=== PATIENT | female | born 1985 | race Caucasian/White ===

== ENCOUNTER 2017-03-04 21:56 | Emergency (ER) | payer OTHER ==
[~2017-03-04] VITALS: Ht 165.1 cm; Wt 77.1 kg
[~2017-03-04 21:56] MED LIST: ACET-704 PO; CYCL10TA2 PO; ESCI10TA10 PO; METH4TAB2 PO; NAPR500T8 PO; ONDA4TAB10 SL
[2017-03-04 22:52] VITALS: BP 134/95
[2017-03-04] MEDS ORDERED: IBUP-1007 PO (23:21)
--- NOTE | 2017-03-04 23:21 | PHYS DOC ---
Past Medical History Past Medical History: No Pertinent History, Anxiety Past Surgical History: Alcohol Use: None Drug Use: None Adult General Chief Complaint Chief Complaint: HAND PROBLEM HPI HPI Patient is a 32 year old female who presents here today secondary to pain to her left hand. Patient reports that it was actually hit her son while he was swinging a plastic bat. Patient claims of pain over her fifth MCP joint region. Patient with any other complaints at this time. Patient's physical exam is significant for tenderness to palpation to her left fifth MCP area. Patient has a deformity. There is some soft tissue swelling in that area and some erythema. Patient's full range of motion intact. Patient has no deformity Patient's ER workup was significant for an x-ray that was obtained that revealed no acute fracture. X-ray left hand: No fracture no dislocation interpreted by Dr. Jiménez. Assessment and plan This is a 32-year-old female who presents here today secondary to pain to her left hand after blunt trauma to it. Patient's x-rays are negative. Patient be discharged home with ibuprofen assist her with the pain. Review of Systems Review of Systems Constitutional: Denies fever or chills [] Eyes: Denies change in visual acuity, redness, or eye pain [] All other review systems are negative except as documented in the history of present illness portion. Current Medications Current Medications Current Medications Medications (Trade) Dose Ordered Sig/Nelli Start Time Stop Time Status Last Admin Dose Admin Ibuprofen (Motrin) 600 mg 1X ONCE 03/04/17 23:30 03/04/17 23:31 Allergies Allergies Allergies Coded Allergies Type Severity Reaction Last Updated Verified No Known Drug Allergies 05/11/15 No Physical Exam Physical Exam Constitutional: Well developed, well nourished, no acute distress, non-toxic appearance. [] HENT: Normocephalic, atraumatic, bilateral external ears normal, oropharynx moist, no oral exudates, nose normal. [] Eyes: PERRLA, EOMI, conjunctiva normal, no discharge. [] Neck: Normal range of motion, no tenderness, supple, no stridor. [] Cardiovascular:Heart rate regular rhythm, no murmur [] Lungs & Thorax: Bilateral breath sounds clear to auscultation [] Abdomen: Bowel sounds normal, soft, no tenderness, no masses, no pulsatile masses. [] Skin: Warm, dry, no erythema, no rash. [] Back: No tenderness, no CVA tenderness. [] Extremities: See above. Neurologic: Alert and oriented X 3, normal motor function, normal sensory function, no focal deficits noted. [] Psychologic: Affect normal, judgement normal, mood normal. [] Current Patient Data Vital Signs Vital Signs Date Time Temp Pulse Resp B/P (MAP) Pulse Ox O2 Delivery O2 Flow Rate FiO2 03/04/17 22:52 98.0 86 18 98 Room Air 98.0 EKG EKG [] Radiology/Procedures Radiology/Procedures [] Course & Med Decision Making Course & Med Decision Making Pertinent Labs and Imaging studies reviewed. (See chart for details) [] Dragon Disclaimer Dragon Disclaimer This electronic medical record was generated, in whole or in part, using a voice recognition dictation system. Departure Departure Impression: Primary Impression: Contusion of left hand, initial encounter Disposition: HOME, SELF-CARE Condition: IMPROVED Referrals: UNKNOWN PCP NAME (PCP) Patient Instructions: Hand Contusion Scripts Ibuprofen (IBUPROFEN) 600 Mg Tablet 600 MG PO PRN Q6HRS Y for PAIN, #20 TAB Prov: PATRICK ZHU MD 03/04/17 PATRICK ZHU MD March 04, 2017 23:21
[2017-03-04] MEDS ORDERED: IBUPROFEN 600 MG TABLET. PO ONE (23:30)
--- NOTE | 2017-03-05 07:28 | RAD ---
Portable left hand, 3 views, 03/04/2017: History: Hand injury. No fracture or dislocation is identified. The soft tissues are unremarkable. IMPRESSION: No acute left hand abnormality is detected.
== END 2017-03-04 23:42 | disposition home or self-care (01) ==
LOC: ER 21:56
DX: S60.222A Contusion of left hand, initial encounter (principal); W22.8XXA Striking against or struck by other objects, initial encounter; Y93.89 Activity, other specified; Y99.8 Other external cause status; Y92.89 Other specified places as the place of occurrence of the external cause
CPT/HCPCS: 73130; 99284

== ENCOUNTER 2017-04-22 15:14 | Emergency (ER) | payer OTHER ==
[~2017-04-22] VITALS: Ht 157.5 cm; Wt 73.9 kg
[~2017-04-22 15:14] MED LIST changes: -ESCI10TA10 PO; +IBUP-1007 PO; +LEXAPRO10 MG PO
[2017-04-22 15:28] VITALS: BP 121/79
--- NOTE | 2017-04-22 15:57 | RAD ---
Indication injury, pain. AP oblique and lateral views of the right knee were obtained. A sunrise view was also obtained. No acute finding is seen. Significant degenerative changes are not apparent
[2017-04-22] MEDS ORDERED: DICL50TA4 PO (16:24)
--- NOTE | 2017-04-22 16:24 | PHYS DOC ---
Past Medical History Past Medical History: No Pertinent History, Anxiety Past Surgical History: Alcohol Use: None Drug Use: None Adult General Chief Complaint Chief Complaint: KNEE INJURY HPI HPI Patient is a 32 year old female with history of anxiety who presents with right posterior knee pain mild in nature that began yesterday while mowing his lawn. Patient denies any known injury. Patient states the pain is worse on flexion of the knee. Review of Systems Review of Systems Constitutional: Denies fever or chills [] Eyes: Denies change in visual acuity, redness, or eye pain [] Musculoskeletal: right posterior knee pain Integument: Denies rash or skin lesions [] Neurologic: Denies headache, focal weakness or sensory changes [] Endocrine: Denies polyuria or polydipsia [] Allergies Allergies Allergies Coded Allergies Type Severity Reaction Last Updated Verified No Known Drug Allergies 05/11/15 No Physical Exam Physical Exam Constitutional: Well developed, well nourished, no acute distress, non-toxic appearance. [] HENT: Normocephalic, atraumatic, bilateral external ears normal, oropharynx moist, no oral exudates, nose normal. [] Skin: Warm, dry, no erythema, no rash. [] Back: No tenderness, no CVA tenderness. [] Extremities: Right knee with no obvious edema and obvious ecchymosis no obvious deformity. Slight tenderness on palpation of posterior right knee. Full range of motion to the right knee including negative Shaheen sign and negative Valeria's sign negative anterior-posterior drawer sign to the right knee. +2 right pedal pulse. Cap refill less than 2 seconds the right lower extremity. Sensation intact to the right lower extremity. Neurologic: Alert and oriented X 3, normal motor function, normal sensory function, no focal deficits noted. [] Psychologic: Affect normal, judgement normal, mood normal. [] Current Patient Data Vital Signs Vital Signs Date Time Temp Pulse Resp B/P (MAP) Pulse Ox O2 Delivery O2 Flow Rate FiO2 04/22/17 15:28 98.4 75 18 98 Room Air 98.4 EKG EKG [] Radiology/Procedures Radiology/Procedures []PROCEDURE: KNEE RIGHT 4V Indication injury, pain. AP oblique and lateral views of the right knee were obtained. A sunrise view was also obtained. No acute finding is seen. Significant degenerative changes are not apparent DICTATED and SIGNED BY: TOSHA MCCRARY MD DATE: 04/22/17 7960 CC: DORETHA OCONNOR APRN; NON,STAFF; UNKNOWN PCP NAME ~ Course & Med Decision Making Course & Med Decision Making Pertinent Labs and Imaging studies reviewed. (See chart for details) Patient is in the ED right knee pain that began while mowing yesterday. Right knee x-rays interpreted by radiologist are negative for any acute findings. Joey wrap was applied to patient's right knee by the ED RN, neurovascular exam done by me is normal, cap refill less than 2 seconds. Ice elevation encouraged. Discharged with diclofenac. Follow-up with orthopedic doctor in a week if pain continues. Dragon Disclaimer Dragon Disclaimer This electronic medical record was generated, in whole or in part, using a voice recognition dictation system. Departure Departure Impression: Primary Impression: Knee sprain Disposition: HOME, SELF-CARE Condition: STABLE Referrals: UNKNOWN PCP NAME (PCP) ELMER SANTANA II, MD Follow-up with the provided orthopedic doctor in the next 7 days Patient Instructions: Knee Pain, Knee Sprain Additional Instructions: You were seen for right knee sprain. Wear the Joey wrap as tolerated and needed. Ice and elevate the extremity. Follow-up with the provided orthopedic doctor or your own doctor in 1-2 weeks if pain continues. Take the prescribed medicines as needed. Scripts Diclofenac Sodium (DICLOFENAC SODIUM) 50 Mg Tablet. 1 TAB PO BID, #60 TAB 1 Refill Prov: DORETHA OCONNOR APRN 04/22/17 Problem Qualifiers Primary Impression: Knee sprain Encounter type: initial encounter Involved ligament of knee: unspecified ligament Laterality: right Qualified Codes: S83.91XA - Sprain of unspecified site of right knee, initial encounter DORETHA OCONNOR APRN Apr 22, 2017 16:24
== END 2017-04-22 16:30 | disposition home or self-care (01) ==
LOC: ER 15:14
DX: S83.91XA Sprain of unspecified site of right knee, initial encounter (principal); F41.9 Anxiety disorder, unspecified; X58.XXXA Exposure to other specified factors, initial encounter; Y93.89 Activity, other specified; Y92.89 Other specified places as the place of occurrence of the external cause; Y99.8 Other external cause status
CPT/HCPCS: 73564; 99284

== ENCOUNTER 2017-06-27 08:11 | Emergency (ER) | payer OTHER ==
[~2017-06-27] VITALS: Ht 157.5 cm; Wt 72.6 kg
[~2017-06-27 08:11] MED LIST changes: +DICL50TA4 PO
[2017-06-27 08:44] LABS: BILIRUBIN,URINE NEGATIVE (NEG); GLUCOSE,URINE NEGATIVE (NEG); NITRITE,URINE NEGATIVE (NEG); PH,URINE 6.5; PROTEIN,URINE NEGATIVE (NEG-TRACE)
[2017-06-27] MEDS ORDERED: IV NORMAL SALINE 1000ML BAG 1,000 ML IV SCH (08:47)
[2017-06-27 08:53] LABS: BACTERIA,URINE FEW /HPF (0-FEW); RBC,URINE 0 /HPF (0-2); SQUAMOUS EPITHELIAL CELL,UR MOD /LPF; WBC,URINE OCC /HPF (0-4)
[2017-06-27] MEDS ORDERED: ONDA4TAB10 SL (08:57)
--- NOTE | 2017-06-27 08:58 | PHYS DOC ---
Past Medical History Past Medical History: No Pertinent History, Anxiety Past Surgical History: Alcohol Use: None Drug Use: None Adult General Chief Complaint Chief Complaint: ABDOMINAL PAIN HPI HPI 32-year-old female presenting to the emergency department today with epigastric abdominal pain nausea with vomiting. She describes her vomitus is stomach contents. She denies any recent food intake and denies any other sick contacts. She also has had loose stools without any blood in her stools. She denies fevers or chills. She describes the pain is mild nonradiating intermittent and without alleviating factors. Review of systems is negative for chest pain shortness of breath hematuria polyuria dysuria or being . All other review of systems is negative unless otherwise noted in history of present illness. ED course: 32-year-old female presenting to the emergency Department generalized epigastric abdominal pain. Vital signs show the patient to be tachycardic otherwise afebrile. Pertinent physical examination findings:Soft nontender abdomen without rebound tenderness or guarding present. Negative McBurneys point. Negative Blackwood sign. No ecchymosis present. IV fluids and Zofran given in the emergency department. CT the abdomen pelvis obtained. Repeat abdominal exam continues show soft and nontender abdomen. She was feeling much better on reexamination. CT abd pelv neg. The patient was then discharged home in stable condition to follow up with their primary care physician over the next 2-3 days. They were to return if their symptoms worsened or if they were concerned for any reason. [id number] discharge instructions and return precautions were given. Patient's questions were answered to their satisfaction. Patient is comfortable plan. Review of Systems Review of Systems SEE ABOVE. Current Medications Current Medications Current Medications Medications (Trade) Dose Ordered Sig/Nelli Start Time Stop Time Status Last Admin Dose Admin Info (Do NOT chart on this entry -- for MONITORING) 1 each PRN DAILY PRN 06/27/17 09:45 06/27/17 12:23 DC Iohexol (Omnipaque 300 Mg/ml) 75 ml STK-MED ONCE 06/27/17 09:48 06/27/17 09:49 DC Ondansetron HCl (Zofran) 4 mg 1X ONCE 06/27/17 09:00 06/27/17 09:01 DC 06/27/17 09:09 4 MG Sodium Chloride 1,000 ml @ 1,000 mls/hr 1X ONCE 06/27/17 09:30 06/27/17 10:29 DC 06/27/17 10:10 1,000 MLS/HR Allergies Allergies Allergies Coded Allergies Type Severity Reaction Last Updated Verified No Known Drug Allergies 05/11/15 No Physical Exam Physical Exam SEE ABOVE Constitutional: Well developed, well nourished, no acute distress, non-toxic appearance. [] HENT: Normocephalic, atraumatic, bilateral external ears normal, oropharynx moist, no oral exudates, nose normal. [] Eyes: PERRLA, EOMI, conjunctiva normal, no discharge. [] Neck: Normal range of motion, no tenderness, supple, no stridor. [] Cardiovascular:Heart rate regular rhythm, no murmur [] Lungs & Thorax: Bilateral breath sounds clear to auscultation [] Abdomen: Bowel sounds normal, soft, no tenderness, no masses, no pulsatile masses. [] Skin: Warm, dry, no erythema, no rash. [] Back: No tenderness, no CVA tenderness. [] Extremities: No tenderness, no cyanosis, no clubbing, ROM intact, no edema. [] Neurologic: Alert and oriented X 3, normal motor function, normal sensory function, no focal deficits noted. [] Psychologic: Affect normal, judgement normal, mood normal. [] Current Patient Data Vital Signs Vital Signs Date Time Temp Pulse Resp B/P (MAP) Pulse Ox O2 Delivery O2 Flow Rate FiO2 06/27/17 12:01 118 19 121/79 (93) 99 Room Air 06/27/17 08:33 98.1 98.1 Lab Values Laboratory Tests Test 06/27/17 07:28 06/27/17 08:19 06/27/17 09:00 POC Urine HCG, Qualitative Hcg negative (Negative) Urine Collection Type Unknown Urine Color Yellow Urine Clarity Clear Urine pH 6.5 Urine Specific [place] >=1.030 Urine Protein Negative mg/dL (NEG-TRACE) Urine Glucose (UA) Negative mg/dL (NEG) Urine Ketones (Stick) Negative mg/dL (NEG) Urine Blood Negative (NEG) Urine Nitrite Negative (NEG) Urine Bilirubin Negative (NEG) Urine Urobilinogen Dipstick 1.0 mg/dL (0.2 mg/dL) Urine Leukocyte Esterase Negative (NEG) Urine RBC 0 /HPF (0-2) Urine WBC Occ /HPF (0-4) Urine Squamous Epithelial Cells Mod /LPF Urine Bacteria Few /HPF (0-FEW) Urine Mucus Mod /LPF White Blood Count 14.9 x10^3/uL (4.0-11.0) H Red Blood Count 5.11 x10^6/uL (3.50-5.40) Hemoglobin 15.1 g/dL (12.0-15.5) Hematocrit 44.3 % (36.0-47.0) Mean Corpuscular Volume 87 fL (79-100) Mean Corpuscular Hemoglobin 30 pg (25-35) Mean Corpuscular Hemoglobin Concent 34 g/dL (31-37) Red Cell Distribution Width 13.2 % (11.5-14.5) Platelet Count 321 x10^3/uL (140-400) Neutrophils (%) (Auto) 94 % (31-73) H Lymphocytes (%) (Auto) 3 % (24-48) L Monocytes (%) (Auto) 3 % (0-9) Eosinophils (%) (Auto) 0 % (0-3) Basophils (%) (Auto) 0 % (0-3) Neutrophils # (Auto) 14.0 x10^3uL (1.8-7.7) H Lymphocytes # (Auto) 0.5 x10^3/uL (1.0-4.8) L Monocytes # (Auto) 0.4 x10^3/uL (0.0-1.1) Eosinophils # (Auto) 0.0 x10^3/uL (0.0-0.7) Basophils # (Auto) 0.0 x10^3/uL (0.0-0.2) Segmented Neutrophils % 94 % (35-66) H Lymphocytes % 2 % (24-48) L Monocytes % 4 % (0-10) Platelet Estimate Adequate (ADEQUATE) Sodium Level 140 mmol/L (136-145) Potassium Level 3.6 mmol/L (3.5-5.1) Chloride Level 100 mmol/L (98-107) Carbon Dioxide Level 28 mmol/L (21-32) Anion Gap 12 (6-14) Blood Urea Nitrogen 19 mg/dL (7-20) Creatinine 0.7 mg/dL (0.6-1.0) Estimated GFR (Cockcroft-Gault) 97.6 BUN/Creatinine Ratio 27 (6-20) H Glucose Level 116 mg/dL (70-99) H Calcium Level 9.4 mg/dL (8.5-10.1) Total Bilirubin 0.3 mg/dL (0.2-1.0) Aspartate Amino Transferase (AST) 16 U/L (15-37) Alanine Aminotransferase (ALT) 25 U/L (14-59) Alkaline Phosphatase 63 U/L (46-116) Total Protein 8.5 g/dL (6.4-8.2) H Albumin 4.5 g/dL (3.4-5.0) Albumin/Globulin Ratio 1.1 (1.0-1.7) Lipase 91 U/L (73-393) Laboratory Tests 06/27/17 09:00 Laboratory Tests 06/27/17 09:00 EKG EKG [] Radiology/Procedures Radiology/Procedures [] Course & Med Decision Making Course & Med Decision Making Pertinent Labs and Imaging studies reviewed. (See chart for details) [] Dragon Disclaimer Dragon Disclaimer This electronic medical record was generated, in whole or in part, using a voice recognition dictation system. Departure Departure Impression: Primary Impression: Abdominal pain Additional Impression: Nausea vomiting and diarrhea Disposition: HOME, SELF-CARE Condition: IMPROVED Referrals: UNKNOWN PCP NAME (PCP) TRACEY SHANE MD Patient Instructions: Nausea and Vomiting Additional Instructions: Thank you for allowing us to participate in your care today. Followup with your primary care physician in 3 days if your symptoms do not improve. Call your Primary Doctor tomorrow and inform them of your visit today. If you do not have a primary care provider you can ask for a list of our primary care providers. Return to the emergency department you have any new or concerning findings. This should be evaluated by the primary care physician and any necessary consulting services for continued management within a few days after discharge. Return to emergency room if you have any new or concerning symptoms including but not limited to fever, chills, nausea, vomiting, intractable pain, any new rashes, chest pain, shortness of air, uncontrolled bleeding, difficulty breathing, and/or vision loss. Scripts Ondansetron (ZOFRAN ODT) 4 Mg Tab.rapdis 1 TAB SL PRN Q8HRS Y for NAUSEA, #6 TAB Prov: AMALIA HIDALGO MD 06/27/17 Problem Qualifiers AMALIA HIDALGO MD Jun 27, 2017 08:58
[2017-06-27] MEDS ORDERED: ONDANSETRON PF 4 MG/2 ML VIAL. IV ONE (09:00)
[2017-06-27 09:15] LABS: BASO % 0 % (0-3); EOS % 0 % (0-3); HEMATOCRIT 44.3 % (36.0-47.0); HEMOGLOBIN 15.1 g/dL (12.0-15.5); LYMPH # 0.5 x10^3/uL (1.0-4.8); LYMPH % 3 % (24-48); MEAN CORPUSCULAR HEMOGLOBIN 30 pg (25-35); MEAN CORPUSCULAR HGB CONC 34 g/dL (31-37); MEAN CORPUSCULAR VOLUME 87 fL (79-100); MONO % 3 % (0-9); NEUT % 94 % (31-73); PLATELET COUNT 321 x10^3/uL (140-400); RED BLOOD COUNT 5.11 x10^6/uL (3.50-5.40); RED CELL DISTRIBUTION WIDTH 13.2 % (11.5-14.5); WHITE BLOOD COUNT 14.9 x10^3/uL (4.0-11.0)
[2017-06-27 09:26] LABS: CALCIUM 9.4 mg/dL (8.5-10.1); CREATININE 0.7 mg/dL (0.6-1.0); GFR 97.6; POTASSIUM 3.6 mmol/L (3.5-5.1)
[2017-06-27] MEDS ORDERED: IV NORMAL SALINE 1000ML BAG 1,000 ML IV ONE (09:30)
[2017-06-27 09:31] LABS: ALBUMIN 4.5 g/dL (3.4-5.0); ALBUMIN/GLOBULIN RATIO 1.1 (1.0-1.7); TOTAL BILIRUBIN 0.3 mg/dL (0.2-1.0); TOTAL PROTEIN 8.5 g/dL (6.4-8.2)
[2017-06-27] MEDS ORDERED: CONTRAST GIVEN MC PRN (09:45)
[2017-06-27] MEDS ORDERED: IOHEXOL 300 MG/ML 75 ML VIAL IV ONE (09:45)
[2017-06-27] MEDS ORDERED: IOHEXOL 300 MG/ML 75 ML VIAL ONE (09:48)
[2017-06-27 11:10] LABS: PLT ESTIMATE ADEQUATE (ADEQUATE)
--- NOTE | 2017-06-27 11:13 | RAD ---
Indication abdominal pain. Axial images through the abdomen and pelvis were obtained. Approximately 75 cc of Omnipaque 300 was administered intravenously. No oral contrast was administered. No prior CT imaging of the abdomen or pelvis is available. The lung bases are clear. The liver and spleen appear unremarkable. The gallbladder appears grossly normal. The pancreas adrenal glands and kidneys appear normal. No acute finding is apparent in the abdomen. In the pelvis no focal mass or inflammatory process is seen. IUD is noted. IMPRESSION: No acute finding seen in the abdomen or pelvis
[2017-06-27 12:01] VITALS: BP 121/79
== END 2017-06-27 12:23 | disposition home or self-care (01) ==
LOC: ER 08:11
DX: R10.13 Epigastric pain (principal); R11.2 Nausea with vomiting, unspecified; R19.7 Diarrhea, unspecified
CPT/HCPCS: 36415; 74177; 80053; 81001; 81025; 83690; 85007; 85025; 96361; 96374; 99285; J2405; J7030; Q9967

== ENCOUNTER 2017-08-01 08:21 | Emergency (ER) | payer OTHER ==
[~2017-08-01] VITALS: Ht 157.5 cm; Wt 72.6 kg
[2017-08-01 08:28] VITALS: BP 136/77
[2017-08-01] MEDS ORDERED: IBUPROFEN 800 MG TABLET. PO ONE (08:45)
--- NOTE | 2017-08-01 08:46 | PHYS DOC ---
Past Medical History Past Medical History: No Pertinent History, Anxiety Past Surgical History: Alcohol Use: None Drug Use: None Adult General Chief Complaint Chief Complaint: OTHER COMPLAINTS [facility] HPI Patient is a 32 year old female presents to the emergency department with c/o pain to the left heel patient states this has been going on for last 3-4 days. Patient states she has swelling and discomfort. Patient denies injury or trauma. Denies pain relief with Tylenol. Patient states she tried insoles to see if this would help with the pain and actually made it worse. Review of Systems Review of Systems Constitutional: Denies fever or chills [] Eyes: Denies change in visual acuity, redness, or eye pain [] HENT: Denies nasal congestion or sore throat [] Respiratory: Denies cough or shortness of breath [] Cardiovascular: No additional information not addressed in HPI [] GI: Denies abdominal pain, nausea, vomiting, bloody stools or diarrhea [] : Denies dysuria or hematuria [] Musculoskeletal: Denies back pain or joint pain. Left heel pain Integument: Denies rash or skin lesions [] Neurologic: Denies headache, focal weakness or sensory changes [] Endocrine: Denies polyuria or polydipsia [] Current Medications Current Medications Current Medications Medications (Trade) Dose Ordered Sig/Nelli Start Time Stop Time Status Last Admin Dose Admin Ibuprofen (Motrin) 800 mg 1X ONCE 08/01/17 08:45 08/01/17 08:46 DC 08/01/17 08:47 800 MG Allergies Allergies Allergies Coded Allergies Type Severity Reaction Last Updated Verified No Known Drug Allergies 05/11/15 No Physical Exam Physical Exam Constitutional: Well developed, well nourished, no acute distress, non-toxic appearance. [] HENT: Normocephalic, atraumatic, bilateral external ears normal, oropharynx moist, no oral exudates, nose normal. [] Eyes: PERRLA, EOMI, conjunctiva normal, no discharge. [] Neck: Normal range of motion, no tenderness, supple, no stridor. [] Cardiovascular:Heart rate regular rhythm, no murmur [] Lungs & Thorax: Bilateral breath sounds clear to auscultation [] Abdomen: Bowel sounds normal, soft, no tenderness, no masses, no pulsatile masses. [] Skin: Warm, dry, no erythema, no rash. [] Extremities: Left heel tenderness and swelling, no cyanosis, no clubbing, ROM intact, no edema. no redness noted. Patient with full ROM of the foot. Peripheral pulses 2+ cap refill brisk < 2 seconds. Neurologic: Alert and oriented X 3, normal motor function, normal sensory function, no focal deficits noted. [] Psychologic: Affect normal, judgement normal, mood normal. [] Current Patient Data Vital Signs Vital Signs Date Time Temp Pulse Resp B/P (MAP) Pulse Ox O2 Delivery O2 Flow Rate FiO2 08/01/17 08:28 98.5 106 16 98 Room Air 98.5 EKG EKG [] Radiology/Procedures Radiology/Procedures [][facility] [address] [place] [address] IMAGING REPORT Signed PATIENT: ANA PATEL ACCOUNT: [id number] : 1985 LOCATION: ER AGE: 32 SEX: F EXAM STATUS: REG ER ORD. PHYSICIAN: STEVE SALAMANCA APRN REASON: heel pain for 3-4 days increase pain with ambulation PROCEDURE: FOOT LEFT 3V Left foot, 3 views, 08/01/2017: History: Heel pain No acute fracture or dislocation is identified. There is smooth cortical thickening along the shaft of the fourth metatarsal compatible with an old healed fracture. There is a small sclerotic focus in the proximal end of the proximal phalanx of the third toe compatible with a bone island. There is a similar small sclerotic focus in the cuboid bone laterally. A small inferior calcaneal spur is noted. There is mild subcutaneous edema along the plantar surface of the foot and heel. IMPRESSION: 1. Small inferior calcaneal spur. 2. No acute bony abnormality is detected. DICTATED and SIGNED BY: BRODY GLEASON MD DATE: 08/01/17 0851 CC: STEVE SALAMANCA APRN; UNKNOWN PCP NAME ~ Course & Med Decision Making Course & Med Decision Making Pertinent Labs and Imaging studies reviewed. (See chart for details) X-ray negative for fractures. Patinet will be recommended to use NSAID's for pain with ice packs on 20 minutes and 20 minutes off. Elevation as much as possible. Recommended that patient use a tennis ball to stretch out the plantar fascitis. Patient will also be recommended to follow up with new business clerk in the next week. Signs and symptoms to return to the emergency department has been provided. All questions and concerns have been answered at the patients bedside. Patient agrees with discharge instructions, treatment and regimens. [] Dragon Disclaimer Dragon Disclaimer This electronic medical record was generated, in whole or in part, using a voice recognition dictation system. Departure Departure Impression: Primary Impression: Left foot pain Disposition: HOME, SELF-CARE Condition: STABLE Referrals: UNKNOWN PCP NAME (PCP) Patient Instructions: Plantar Fasciitis (Heel Spur Syndrome) with Rehab- [facility] Additional Instructions: Activity as tolerated Medications as prescribed Ice packs on 20 minutes and off 20 minutes several times a day Elevation as much as possible Use a tennis ball to roll on the bottom of the foot to help stretch out the plantar fascitis Followup with new business clerk in 1 week Return to emergency department as needed for signs and symptoms that become worse Scripts Ibuprofen (IBUPROFEN) 800 Mg Tablet 800 MG PO PRN Q6HRS Y for INFLAMMATION, #30 TAB Prov: STEVE SALAMANCA APRN 08/01/17 STEVE SALAMANCA APRN Aug 01, 2017 08:46
--- NOTE | 2017-08-01 08:56 | RAD ---
Left foot, 3 views, 08/01/2017: History: Heel pain No acute fracture or dislocation is identified. There is smooth cortical thickening along the shaft of the fourth metatarsal compatible with an old healed fracture. There is a small sclerotic focus in the proximal end of the proximal phalanx of the third toe compatible with a bone island. There is a similar small sclerotic focus in the cuboid bone laterally. A small inferior calcaneal spur is noted. There is mild subcutaneous edema along the plantar surface of the foot and heel. IMPRESSION: 1. Small inferior calcaneal spur. 2. No acute bony abnormality is detected.
[2017-08-01] MEDS ORDERED: IBUP-1060 PO (09:10)
== END 2017-08-01 09:35 | disposition home or self-care (01) ==
LOC: ER 08:21
DX: M79.672 Pain in left foot (principal); M79.89 Other specified soft tissue disorders
CPT/HCPCS: 73630; 99284

== ENCOUNTER 2018-12-27 02:51 | Emergency (ER) | payer OTHER ==
[~2018-12-27] VITALS: Ht 160 cm; Wt 74.8 kg
[~2018-12-27 02:51] MED LIST changes: +IBUP-1060 PO
[2018-12-27 03:12] VITALS: BP 142/75
[2018-12-27] MEDS ORDERED: DOXY100C2 PO (04:09)
[2018-12-27] MEDS ORDERED: PRED50TA PO (04:09)
[2018-12-27] MEDS ORDERED: ALBU2.5V8 INH (04:09)
--- NOTE | 2018-12-27 04:10 | PHYS DOC ---
Past Medical History Past Medical History: Anxiety, Asthma Past Surgical History: Alcohol Use: Rarely Drug Use: None Adult General Chief Complaint Chief Complaint: COUGH HPI HPI Patient is a 33 year old female who presents with cough and chest congestion for the past 14 hours. She reports a nonproductive, dry, painful cough that has progressively worsened throughout the day. Her pain is localized substernally and rates it a 6/10, and it can go up to an 8/10 when she coughs only with coughing.. Pt has a history of asthma treated w/ albuterol PRN, though she notes she has not used her inhaler for "quite some time" and needs to get a refill. She admits to MINER and an inability to take a deep breath without inducing a painful cough. She denies fever/chills, chiest pain, n/v, diarrhea, constipation, dysuria, and urgency. She reports being up to date on all of her vaccinations and denies recent travel, sick contacts, and environmental changes. Review of Systems Review of Systems Constitutional: Denies fever or chills Eyes: Denies change in visual acuity, redness, or eye pain HENT: Denies nasal congestion or sore throat Respiratory: Admits to cough, MINER, and bronchial pain not unlike symptoms she's experienced from her asthma. shortness of breath Cardiovascular: No additional information not addressed in HPI GI: Denies abdominal pain, nausea, vomiting, bloody stools or diarrhea : Denies dysuria or hematuria Musculoskeletal: Denies back pain or joint pain Integument: Denies rash or skin lesions Neurologic: Denies headache, focal weakness or sensory changes Endocrine: Denies polyuria or polydipsia All other systems were reviewed and found to be within normal limits, except as documented in this note. Current Medications Current Medications Current Medications Medications (Trade) Dose Ordered Sig/Nelli Start Time Stop Time Status Last Admin Dose Admin Prednisone (Prednisone) 50 mg 1X ONCE 12/27/18 04:15 12/27/18 04:16 DC 12/27/18 04:21 50 MG Allergies Allergies Allergies Coded Allergies Type Severity Reaction Last Updated Verified No Known Drug Allergies 05/11/15 No Physical Exam Physical Exam Constitutional: Well developed, well nourished, no acute distress, non-toxic appearance. [] HENT: Normocephalic, atraumatic, bilateral external ears normal, oropharynx moist but mildly inflamed and erythematous without exudate, nose normal. [] Eyes: PERRLA, EOMI, conjunctiva normal, no discharge. [] Neck: Normal range of motion, no tenderness, supple, no stridor. [] Cardiovascular:Heart rate regular rhythm, no murmur [] Lungs & Thorax: Bilateral breath sounds clear to auscultation, able to move air adequately but unable to take a full, deep breath. Abdomen: Bowel sounds normal, soft, no tenderness, no masses, no pulsatile masses. [] Skin: Warm, dry, no erythema, no rash. [] Back: No tenderness, no CVA tenderness. [] Extremities: No tenderness, no cyanosis, no clubbing, ROM intact, no edema. [] Neurologic: Alert and oriented X 3, normal motor function, normal sensory function, no focal deficits noted. [] Psychologic: Affect normal, judgement normal, mood normal. [] Current Patient Data Vital Signs Vital Signs Date Time Temp Pulse Resp B/P (MAP) Pulse Ox O2 Delivery O2 Flow Rate FiO2 12/27/18 03:12 98.4 101 18 142/75 (97) 98 Room Air 98.4 EKG EKG [] Radiology/Procedures Radiology/Procedures [] Course & Med Decision Making Course & Med Decision Making 33 year old afebrile female with a history of asthma and seasonal allergies presents with a nonproductive dry and hacking cough. Pain localized substernally and increases with deep respiration. She reports similar symptoms that she has experienced in the past with asthma. Ddx: Acute bronchitis Viral Upper respiratory infection Asthma GERD pt has essentially clear lungs has some frequent reactive cough that reproduces her symptoms trial prednisone albuterol. i dont think abx are necessary i todl her this, we ultimately agreed take albuterol and prednisone, if not improved in five days consider ab at that time. Dragon Disclaimer Dragon Disclaimer This electronic medical record was generated, in whole or in part, using a voice recognition dictation system. Departure Departure Impression: Primary Impression: Bronchitis Disposition: 01 HOME, SELF-CARE Condition: STABLE Referrals: UNKNOWN PCP NAME (PCP) Scripts Doxycycline Hyclate (DOXYCYCLINE HYCLATE) 100 Mg Capsule 1 CAP PO BID, #14 CAP Prov: ALANNA SIMMONS MD 12/27/18 Albuterol Sulfate (PROAIR HFA INHALER) 8.5 Gm Hfa.aer.ad 1 PUFF INH PRN Q6HRS PRN for SHORTNESS OF BREATH, #1 INHALER 0 Refills Prov: ALANNA SIMMONS MD 12/27/18 Prednisone (PREDNISONE) 50 Mg Tablet 1 TAB PO DAILY, #5 TAB Prov: ALANNA SIMMONS MD 12/27/18 ALANNA SIMMONS MD Dec 27, 2018 04:10
[2018-12-27] MEDS ORDERED: predniSONE 10 MG TABLET PO ONE (04:15)
== END 2018-12-27 04:23 | disposition home or self-care (01) ==
LOC: ER 02:51
DX: J45.909 Unspecified asthma, uncomplicated (principal)
CPT/HCPCS: 99283; J7512